=== PATIENT | male | born 1985 | race Two or more races ===

== ENCOUNTER 2018-09-20 19:07 | Emergency (ER) | payer SELFPAY ==
[~2018-09-20] VITALS: Ht 193 cm; Wt 81.6 kg
[2018-09-20 19:43] VITALS: BP 121/72
== END 2018-09-20 20:16 | disposition home or self-care (01) ==
LOC: ER 19:11
DX: S61.012D Laceration without foreign body of left thumb without damage to nail, subsequent encounter (principal); X58.XXXD Exposure to other specified factors, subsequent encounter
CPT/HCPCS: 99281; A4606; Z7502